=== PATIENT | female | born 1975 | race African-American/Black ===

== ENCOUNTER 2020-06-27 15:35 | Emergency (ER) | payer MEDICARE, MEDICAID ==
[~2020-06-27] VITALS: Ht 152.4 cm; Wt 54.4 kg
[2020-06-27 15:55] VITALS: BP 128/74
[2020-06-27 16:03] VITALS: BP 128/74
--- NOTE | 2020-06-27 16:19 | Emergency Room Report ---
History of Present Illness General Chief Complaint: Abdominal Pain Source: Patient Present Illness HPI Patient is a 45-year-old female presents for increased left-sided pelvic pain. Reports having onset of symptoms 2 days ago. Reports having constant pain worse with ambulation. Denies any fever. Denies any vaginal discharge. Had previous history of right-sided tubo-Oophorectomy for ruptured ectopic. Denies any new vaginal discharge. States last menses was 2 weeks ago. Reports having recent unprotected sex approximately 2 weeks ago. Denies any vomiting or diarrhea. Allergies: Coded Allergies: No Known Allergies (Unverified , 06/27/20) COVID-19 Screening Contact w/high risk pt: No Experienced COVID-19 symptoms?: No COVID-19 Testing performed INTERPERSONAL COMMUNICATIONS PROFESSOR: No Patient History Past Medical History: see triage record Last Menstrual Period: 05/31/20 Now: No Reviewed Nursing Documentation: PMH: Agreed; PSxH: Agreed Nursing Documentation-PMH Hx Cardiac Problems: No Hx Hypertension: No Hx Pacemaker: No Hx Asthma: No Hx COPD: No Hx Diabetes: No Hx Cancer: No Hx Gastrointestinal Problems: No Hx Dialysis: No History Of Psychiatric Problem: No Hx Neurological Problems: No Hx Cerebrovascular Accident: No Hx Seizures: No Review of Systems All Other Systems: negative except mentioned in HPI Physical Exam Vital Signs Date Time Temp Pulse Resp B/P (MAP) Pulse Ox O2 Delivery O2 Flow Rate FiO2 06/27/20 15:55 98.1 82 18 128/74 (92) 98 Room Air Sp02 EP Interpretation: reviewed, normal General Appearance: normal inspection, well appearing, no apparent distress, alert, GCS 15, non-toxic Head: atraumatic ENT: normal ENT inspection, hearing grossly normal, normal voice Neck: normal inspection, full range of motion, supple, no bony tend Respiratory: normal inspection, lungs clear, normal breath sounds, no respiratory distress, no retraction, no wheezing Cardiovascular #1: regular rate, rhythm, no edema Gastrointestinal: normal inspection, normal bowel sounds, non tender, soft, no guarding, no hernia Genitourinary: no CVA tenderness Musculoskeletal: normal inspection, back normal, normal range of motion Neurologic: alert, motor strength/tone normal, hr intern III-XII nml as tested, oriented x3, responsive, speech normal, normal inspection Psychiatric: normal inspection, judgement/insight normal, mood/affect normal Medical Decision Making Diagnostic Impression: Primary Impression: Urinary tract infection Additional Impression: Trichomonas contact ER Course Patient presents for pelvic pain. Differential diagnosis include was not limited to ruptured ovarian cyst, pelvic inflammatory disease, ruptured ectopic among others. Because of complexity of patient's case laboratory tests and imaging studies were ordered.Patient laboratory testing showed normal white blood count. Patient was given IV antibiotics due to urinary infection. She was also given prescription for medications for trichomonas and possible coinfection with other STDs. Patient was agreeable with discharge plan.Patient was advised to follow-up with her primary care physician for recheck. Patient is to return if worse. This medical record is generated with [employer] software. There may be some manufacturing project engineer discrepancies related to use of this software Labs Test 06/27/20 16:22 White Blood Count 4.7 K/UL (4.8-10.8) Red Blood Count 4.88 M/UL (4.20-5.40) Hemoglobin 13.7 G/DL (12.0-16.0) Hematocrit 45.1 % (37.0-47.0) Mean Corpuscular Volume 92 FL (80-99) Mean Corpuscular Hemoglobin 28.0 PG (27.0-31.0) Mean Corpuscular Hemoglobin Concent 30.3 G/DL (32.0-36.0) Red Cell Distribution Width 14.1 % (11.6-14.8) Platelet Count 297 K/UL (150-450) Mean Platelet Volume 7.4 FL (6.5-10.1) Neutrophils (%) (Auto) 53.1 % (45.0-75.0) Lymphocytes (%) (Auto) 33.0 % (20.0-45.0) Monocytes (%) (Auto) 10.2 % (1.0-10.0) Eosinophils (%) (Auto) 1.3 % (0.0-3.0) Basophils (%) (Auto) 2.5 % (0.0-2.0) Prothrombin Time 10.7 SEC (9.30-11.50) Prothromb Time International Ratio 1.0 (0.9-1.1) Activated Partial Thromboplast Time 25 SEC (23-33) Urine Color Pale yellow Urine Appearance Clear Urine pH 7 (4.5-8.0) Urine Specific [place] 1.005 (1.005-1.035) Urine Protein Negative (NEGATIVE) Urine Glucose (UA) Negative (NEGATIVE) Urine Ketones Negative (NEGATIVE) Urine Blood Negative (NEGATIVE) Urine Nitrite Negative (NEGATIVE) Urine Bilirubin Negative (NEGATIVE) Urine Urobilinogen Normal MG/DL (0.0-1.0) Urine Leukocyte Esterase 1+ (NEGATIVE) Urine RBC 0-2 /HPF (0 - 2) Urine WBC 10-15 /HPF (0 - 2) Urine Squamous Epithelial Cells Many /LPF (NONE/OCC) Urine Bacteria Moderate /HPF (NONE) Urine Trichomonas Few /HPF (NONE) Urine HCG, Qualitative Negative (NEGATIVE) Sodium Level 135 MMOL/L (136-145) Potassium Level 4.0 MMOL/L (3.5-5.1) Chloride Level 99 MMOL/L (98-107) Carbon Dioxide Level 28 MMOL/L (21-32) Anion Gap 8 mmol/L (5-15) Blood Urea Nitrogen 13 mg/dL (7-18) Creatinine 0.8 MG/DL (0.55-1.30) Estimat Glomerular Filtration Rate > 60 mL/min (>60) Glucose Level 99 MG/DL (74-106) Calcium Level 9.8 MG/DL (8.5-10.1) Total Bilirubin 0.3 MG/DL (0.2-1.0) Aspartate Amino Transf (AST/SGOT) 21 U/L (15-37) Alanine Aminotransferase (ALT/SGPT) 24 U/L (12-78) Alkaline Phosphatase 49 U/L (46-116) Total Protein 7.9 G/DL (6.4-8.2) Albumin 4.3 G/DL (3.4-5.0) Globulin 3.6 g/dL Albumin/Globulin Ratio 1.2 (1.0-2.7) Lipase 119 U/L (73-393) Last Vital Signs Date Time Temp Pulse Resp B/P (MAP) Pulse Ox O2 Delivery O2 Flow Rate FiO2 06/27/20 16:03 98.1 18 128/74 98 Room Air 06/27/20 15:55 82 Status: improved Disposition: HOME, SELF-CARE Condition: Stable Scripts Ibuprofen* (MOTRIN*) 600 Mg Tablet 600 MG ORAL Q8H PRN for FOR PAIN, #20 TAB 0 Refills Prov: Brad Zhu MD 06/27/20 Cephalexin* (KEFLEX*) 500 Mg Capsule 500 MG ORAL EVERY 6 HOURS, #28 CAP Prov: Brad Zhu MD 06/27/20 Metronidazole* (FLAGYL*) 500 Mg Tablet 500 MG ORAL BID, #14 TAB Prov: Brad Zhu MD 06/27/20 Doxycycline Monohydrate* (DOXYCYCLINE MONOHYDRATE*) 100 Mg Capsule 100 MG ORAL Q12H, #14 CAP 0 Refills Prov: Brad Zhu MD 06/27/20 Referrals: NON PHYSICIAN (PCP) Brad Zhu MD Jun 27, 2020 16:19
[2020-06-27] MEDS ORDERED: Ketorolac 30mg Inj IV ONE (16:30)
[2020-06-27 16:34] LABS: BASOPHILS % (AUTO) 2.5 % (0.0-2.0); EOSINOPHILS % (AUTO) 1.3 % (0.0-3.0); HEMATOCRIT 45.1 % (37.0-47.0); HEMOGLOBIN 13.7 G/DL (12.0-16.0); MEAN CORPUSCULAR VOLUME 92 FL (80-99); MONOCYTES % (AUTO) 10.2 % (1.0-10.0); NEUTROPHILS % (AUTO) 53.1 % (45.0-75.0); PLATELET COUNT 297 K/UL (150-450); RED BLOOD COUNT 4.88 M/UL (4.20-5.40); RED CELL DISTRIBUTION WIDTH 14.1 % (11.6-14.8); WHITE BLOOD COUNT 4.7 K/UL (4.8-10.8)
[2020-06-27 16:44] LABS: APPEARANCE,URINE CLEAR; BILIRUBIN, URINE NEGATIVE (NEGATIVE); COLOR,URINE PALE YELLOW; GLUCOSE, URINE (UA) NEGATIVE (NEGATIVE); KETONES,URINE NEGATIVE (NEGATIVE); LEUKOCYTE ESTERASE ,URINE 1+ (NEGATIVE); NITRITE,URINE NEGATIVE (NEGATIVE); PH,URINE 7 (4.5-8.0); PROTEIN,URINE NEGATIVE (NEGATIVE); UROBILINOGEN,URINE NORMAL MG/DL (0.0-1.0)
[2020-06-27 16:48] LABS: ANION GAP 8 mmol/L (5-15); BLOOD UREA NITROGEN 13 mg/dL (7-18); CALCIUM 9.8 MG/DL (8.5-10.1); CARBON DIOXIDE 28 MMOL/L (21-32); CHLORIDE 99 MMOL/L (98-107); CREATININE 0.8 MG/DL (0.55-1.30); SODIUM 135 MMOL/L (136-145)
[2020-06-27 16:57] LABS: ALANINE AMINOTRANSFERASE 24 U/L (12-78); ALBUMIN 4.3 G/DL (3.4-5.0); ALBUMIN/GLOBULIN RATIO 1.2 (1.0-2.7); ALKALINE PHOSPHATASE 49 U/L (46-116); ASPARTATE AMINO TRANSFERASE 21 U/L (15-37); BILIRUBIN,TOTAL 0.3 MG/DL (0.2-1.0)
--- NOTE | 2020-06-27 17:05 | Diagnostic Imaging Report ---
EXAM: US Pelvis Transabdominal, Complete CLINICAL HISTORY: ABD PAIN TECHNIQUE: Real-time complete transabdominal pelvic ultrasound with image documentation. COMPARISON: No relevant prior studies available. FINDINGS: Uterus/cervix: Possible intramural uterine fibroids up to approximately 2 cm. Uterus 7.9 x 5.6 x 5 cm. Endometrium 7 mm. Right ovary: Right ovary 3.1 x 1.8 x 1.9 cm. Normal blood flow. Left ovary: Left ovary 2.1 x 1.9 x 1.3 cm. Normal blood flow. Free fluid: No free fluid. Bladder: Unremarkable as visualized. IMPRESSION: 1. No ovarian torsion. 2. Possible intramural uterine fibroids up to approximately 2 cm.
[2020-06-27] MEDS ORDERED: cefTRIAXone 1 GM in NS 55 ML IVPB ONE (17:15)
[2020-06-27] MEDS ORDERED: METRONIDAZOLE500 MG ORAL (18:04)
[2020-06-27] MEDS ORDERED: CEPHALEXIN500 MG ORAL (18:04)
[2020-06-27] MEDS ORDERED: IBUPROFEN600 M1 ORAL (18:04)
[2020-06-27] MEDS ORDERED: DOXYCYCLINE MO100 MG ORAL (18:04)
== END 2020-06-27 18:29 | disposition home or self-care (01) ==
LOC: EMR 16:05
DX: N39.0 Urinary tract infection, site not specified (principal); Z90.721 Acquired absence of ovaries, unilateral; A59.9 Trichomoniasis, unspecified
CPT/HCPCS: 36415; 76856; 80053; 81003; 81025; 83690; 85025; 85610; 85730; 87086; 96361; 96365; 96375; 99284; J0696; J1885; J2405; J7030